=== PATIENT | male | born 1955 | race Caucasian/White ===

== ENCOUNTER 2017-05-02 16:17 | Emergency (ER) | payer BC ==
[~2017-05-02] VITALS: Ht 180.3 cm; Wt 175.0 kg
[2017-05-02 16:39] VITALS: BP 126/70; PULSE 85; RESP 16; TEMP 98.4; O2SAT 97
[2017-05-02] MEDS ORDERED: KLOR10TA PO (17:42)
[2017-05-02] MEDS ORDERED: XARE20TA PO (17:42)
[2017-05-02] MEDS ORDERED: ASPI-516 CHEW (17:42)
[2017-05-02] MEDS ORDERED: METO25TA3 PO (17:42)
[2017-05-02] MEDS ORDERED: DIGO0.12 PO (17:42)
[2017-05-02] MEDS ORDERED: ALLO300T2 PO (17:42)
[2017-05-02] MEDS ORDERED: VANCOMYCIN INJ 1,000 MG in SODIUM CHLOR 0.9% 250 ML INJ 250 ML IV ONE (18:45)
[2017-05-02] MEDS ORDERED: SODIUM CHLORIDE 0.9% FLUSH 10 ML FLUSH IVF PRN (18:45)
--- NOTE | 2017-05-02 18:50 | PD ---
HPI . Abscess Chief Complaint: Skin Problem Time Seen by Provider: 18:39 Travel History International Travel<30 days: No Contact w/Intl Traveler<30days: No Traveled to known affect area: No History of Present Illness HPI Patient presents complaining with an abscess on his abdominal wall. Onset was a couple days ago. It has become acutely worse over the last 24 hours. Patient states that he has just moved here from [place] and then he developed increasing pain while driving here. He states that he just got here about noon time today. He denies any associated fever. He does admit to feeling weak. He reports a previous similar episode 13 months ago. He states that he was hospitalized in [place] for about 3 days because of it. He states that it spontaneously drained and now feels better. He rates his pain 4/10. PFSH Past Medical History Hx Anticoagulant Therapy: Yes (XARELTO) Atrial Fibrillation: Yes Cardiovascular Problems: Yes (A. FIB) Diabetes: No Kidney Stones: Yes Social History Alcohol Use: No Tobacco Use: No Substance Use: No Allergies-Medications (Allergen,Severity, Reaction): Coded Allergies: No Known Allergies (Unverified , 05/02/17) Reported Meds & Prescriptions Reported Meds & Active Scripts Active Reported Xarelto (Rivaroxaban) 20 Mg Tab 20 Mg PO DAILY Metoprolol Tartrate 25 Mg Tab 12.5 Mg PO BID Klor-Con 10 (Potassium Chloride) 10 Meq Tab 10 Meq PO DAILY Digoxin 0.125 Mg Tab 0.125 Mg PO DAILY Aspirin 81 Mg Chew 81 Mg CHEW DAILY Allopurinol 300 Mg Tab 300 Mg PO DAILY Review of Systems Except as stated in HPI: all other systems reviewed are Neg General / Constitutional: No: Fever, Chills Gastrointestinal: No: Nausea, Vomiting Skin: Positive Change in Pigmentation Neurologic: Positive: Weakness Physical Exam Narrative GENERAL: Awake and alert and in no acute distress. SKIN: Warm and dry. Large area of erythema on the pannus of his lower abdomen. He has an area of induration but no fluctuance. No drainage currently. HEAD: Normocephalic/atraumatic. EYES: Pupils are equal. Extraocular movements are intact. NECK: Normal range of motion. CARDIOVASCULAR: Regular rate and rhythm. RESPIRATORY: Nonlabored respirations. MUSCULOSKELETAL: Atraumatic. NEUROLOGICAL: Nonfocal. PSYCHIATRIC: Appropriate mood and affect. Data Data Last Documented VS Vital Signs Date Time Temp Pulse Resp B/P (MAP) Pulse Ox O2 Delivery O2 Flow Rate FiO2 05/02/17 16:39 98.4 85 16 126/70 (88) 97 Orders Orders Basic Metabolic Panel (Bmp) (05/02/17 18:39) Complete Blood Count With Diff (05/02/17 18:39) Blood Culture (05/02/17 18:39) Iv Access Insert/Monitor (05/02/17 18:39) Sodium Chloride 0.9% Flush (Ns Flush) (05/02/17 18:45) Ct Abd/Pel W Iv Contrast(Rout) (05/02/17 18:39) Vancomycin Inj (Vancomycin Inj) (05/02/17 18:45) Iohexol 350 Inj (Omnipaque 350 Inj) (05/02/17 19:32) Labs Laboratory Tests Test 05/02/17 18:50 White Blood Count 7.7 TH/MM3 Red Blood Count 4.89 MIL/MM3 Hemoglobin 15.5 GM/DL Hematocrit 46.7 % Mean Corpuscular Volume 95.6 FL Mean Corpuscular Hemoglobin 31.7 PG Mean Corpuscular Hemoglobin Concent 33.2 % Red Cell Distribution Width 12.8 % Platelet Count 175 TH/MM3 Mean Platelet Volume 8.9 FL Neutrophils (%) (Auto) 63.0 % Lymphocytes (%) (Auto) 21.7 % Monocytes (%) (Auto) 12.1 % Eosinophils (%) (Auto) 2.4 % Basophils (%) (Auto) 0.8 % Neutrophils # (Auto) 4.8 TH/MM3 Lymphocytes # (Auto) 1.7 TH/MM3 Monocytes # (Auto) 0.9 TH/MM3 Eosinophils # (Auto) 0.2 TH/MM3 Basophils # (Auto) 0.1 TH/MM3 CBC Comment DIFF FINAL Differential Comment Blood Urea Nitrogen 18 MG/DL Creatinine 0.79 MG/DL Random Glucose 87 MG/DL Calcium Level 8.5 MG/DL Sodium Level 134 MEQ/L Potassium Level 3.8 MEQ/L Chloride Level 100 MEQ/L Carbon Dioxide Level 28.5 MEQ/L Anion Gap 6 MEQ/L Estimat Glomerular Filtration Rate 100 ML/MIN MDM Medical Decision Making Medical Screen Exam Complete: Yes Emergency Medical Condition: Yes Differential Diagnosis My differential diagnosis includes but is not limited to localized wound infection, cellulitis, abscess Narrative Course Patient presents with cellulitis of his abdominal wall. I have ordered IV vancomycin. Septic workup is in process including a CT of his abdomen to look for abscess. He does not meet SIRS/septic criteria. CBC & BMP Diagram 05/02/17 18:50 Calcium Level 8.5 Last Impressions Abdomen/Pelvis CT 05/02/17 [id number] Signed Impressions: Service Date/Time: Tuesday, May 02, 2017 19:27 - CONCLUSION: 1. Fatty liver. 2. Multiple calcified nonobstructing renal calculi. 3. Uncomplicated colonic diverticulosis. 4. Degenerative changes and scoliosis of the thoracolumbar spine. 5. Mild splenomegaly. Riley Chamberlain MD This patient has cellulitis of his abdominal wall but no evidence of an abscess formation. He is not septic. He is stable for treatment as an outpatient. Diagnosis Primary Impression: Abdominal wall cellulitis Referrals: [facility] 2 days Patient Instructions: Cellulitis (DC), General Instructions Med/Other Pt SpecificInfo: Prescription(s) given Scripts Tramadol (Ultram) 50 Mg Tab 50 MG PO Q4H Y for PAIN, #12 TAB 0 Refills Prov: Ginger House MD 05/02/17 Clindamycin (Clindamycin) 300 Mg Cap 600 MG PO Q8H for Infection for 10 Days, #60 CAP 0 Refills Prov: Ginger House MD 05/02/17 Disposition: 01 DISCHARGE HOME Condition: Stable Ginger House MD May 02, 2017 18:50
[2017-05-02 19:07] LABS: AUTOMATED NEUTROPHIL # 4.8 TH/MM3 (1.8-7.7); BASOPHIL # 0.1 TH/MM3 (0-0.2); BASOPHIL % 0.8 % (0.0-2.0); EOSINOPHIL # 0.2 TH/MM3 (0-0.4); EOSINOPHIL % 2.4 % (0.0-4.0); HEMATOCRIT 46.7 % (39.0-51.0); HEMOGLOBIN 15.5 GM/DL (13.0-17.0); LYMPH % 21.7 % (9.0-44.0); LYMPHOCYTE # 1.7 TH/MM3 (1.0-4.8); MEAN CELL VOLUME 95.6 FL (80.0-100.0); MEAN CORPUSCULAR HEMOGLOBIN 31.7 PG (27.0-34.0); MEAN CORPUSCULAR HGB CONC 33.2 % (32.0-36.0); MEAN PLATELET VOLUME 8.9 FL (7.0-11.0); MONO % 12.1 % (0.0-8.0); MONOCYTE # 0.9 TH/MM3 (0-0.9); PLATELET COUNT 175 TH/MM3 (150-450); RED BLOOD COUNT 4.89 MIL/MM3 (4.50-5.90); RED CELL DISTRIBUTION WIDTH 12.8 % (11.6-17.2); WHITE BLOOD COUNT 7.7 TH/MM3 (4.0-11.0)
[2017-05-02 19:17] LABS: CALCIUM 8.5 MG/DL (8.5-10.1)
[2017-05-02 19:18] LABS: BICARBONATE 28.5 MEQ/L (21.0-32.0)
[2017-05-02 19:21] LABS: CREATININE 0.79 MG/DL (0.60-1.30)
[2017-05-02] MEDS ORDERED: IOHEXOL 350 MG/ML 10 ML VIAL (for RAD DIAG) IVCONTRAST ONE (19:32)
--- NOTE | 2017-05-02 19:48 | RADRPT ---
EXAM DATE/TIME: 05/02/2017 19:27 [place] COMPARISON: No previous studies available for comparison. INDICATIONS : Suprapubic pain, swelling, redness and drainage. Evaluate for suprapubic abscess. IV CONTRAST: 92 cc Omnipaque 350 (iohexol) IV ORAL CONTRAST: No oral contrast ingested. RADIATION DOSE: 31.42 CTDIvol (mGy) ; Patient body habitus MEDICAL HISTORY : Renal calculi. Cardiovascular disease SURGICAL HISTORY : None. ENCOUNTER: Initial ACUITY: 4 - 6 days PAIN SCALE: 4/10 LOCATION: Suprapubic. TECHNIQUE: Volumetric scanning of the abdomen and pelvis was performed. Using automated exposure control and ad justment of the mA and/or kV according to patient size, radiation dose was kept as low as reasonably achievable to obtain optimal diagnostic quality images. DICOM format image data is available electro nically for review and comparison. FINDINGS: LOWER LUNGS: The visualized lower lungs are clear. LIVER: The liver demonstrates diffuse fatty infiltration but no focal mass. There is no dilation of the bili ubaldo tree. No calcified gallstones. SPLEEN: Mild splenomegaly is noted. PANCREAS: Within normal limits. KIDNEYS: Normal in size and shape. There is no mass or hydronephrosis. Tiny calcified nonobstructing lower po le renal calculi are noted with the largest on the right measuring 6 mm. ADRENAL GLANDS: Within normal limits. VASCULAR: There is no aortic aneurysm. BOWEL/MESENTERY: Uncomplicated colonic diverticulosis is noted. No acute diverticulitis is noted. ABDOMINAL WALL: Within normal limits. RETROPERITONEUM: There is no lymphadenopathy. BLADDER: No wall thickening or mass. REPRODUCTIVE: Within normal limits. INGUINAL: There is no lymphadenopathy or hernia. MUSCULOSKELETAL: Degenerative changes and scoliosis of the thoracolumbar spine are noted. CONCLUSION: 1. Fatty liver. 2. Multiple calcified nonobstructing renal calculi. 3. Uncomplicated colonic diverticulosis. 4. Degenerative changes and scoliosis of the thoracolumbar spine. 5. Mild splenomegaly. Riley Chamberlain MD on May 02, 2017 at 19:40 Board Certified Radiologist. This report was verified electronically.
[2017-05-02] MEDS ORDERED: TRAM50 PO (20:12)
[2017-05-02] MEDS ORDERED: CLIN300C5 PO (20:12)
[2017-05-02 21:13] VITALS: BP 111/71
== END 2017-05-02 21:21 | disposition home or self-care (01) ==
LOC: PHEFT 16:17
DX: L03.311 Cellulitis of abdominal wall (principal); I48.91 Unspecified atrial fibrillation; Z79.01 Long term (current) use of anticoagulants
CPT/HCPCS: 74177; 80048; 85025; 87040; 96365; 99285; J3370; J7050; Q9967